=== PATIENT | male | born 1995 | race Two or more races ===

== ENCOUNTER 2018-05-04 12:38 | Emergency (ER) | payer OTHER ==
[2018-05-04 12:48] VITALS: BMI 33.5
[2018-05-04 14:18] LABS: BASO % 0.9 % (0-2.0); EOS % 0.7 % (0-4.5); HEMATOCRIT 49.2 % (35.4-49); HEMOGLOBIN 16.3 GM/dL (11.7-16.9); LYMPH % 22.4 % (8-40); MCH 30.3 pg (25.7-33.7); MCHC 33.2 g/dl (32.0-35.9); MEAN CELL VOLUME 91.5 fl (80-96); MEAN PLT VOLUME 9.4 fl (7.5-11.1); PLATELET COUNT 167 K/MM3 (134-434); RBC 5.37 M/mm3 (4.00-5.60); RDW 14.4 % (11.9-15.9); WHITE BLOOD COUNT 7.6 K/mm3 (4.0-10.0)
[2018-05-04 14:55] LABS: ALK PHOS 70 U/L (45-117); ANION GAP 7 MMOL/L (8-16); BILIRUBIN,TOTAL 0.4 mg/dL (0.2-1); BLOOD UREA NITROGEN 13 mg/dL (7-18); CALCIUM 8.9 mg/dL (8.5-10.1); CHLORIDE 104 mmol/L (98-107); CO2 28 mmol/L (21-32); CREATININE 1.1 mg/dL (0.55-1.3); GLUCOSE,RANDOM 119 mg/dL (74-106); POTASSIUM 4.2 mmol/L (3.5-5.1); SGOT/AST 19 U/L (15-37); SGPT/ALT 65 U/L (13-61); SODIUM 140 mmol/L (136-145); TOT PROT 7.5 g/dl (6.4-8.2)
--- NOTE | 2018-05-04 15:38 | PDOC ---
History of Present Illness <Celine Davis - Last Filed: 05/04/18 17:49> - General History Source: Patient, Family (brother) Exam Limitations: Clinical Condition - History of Present Illness Initial Comments: 05/04/18 15:33 Patient with no sig Past medical history present with complain of palpitation upon with this morning upon wake. Patient denies any chest pain, nausea or vomiting. Patient denies sweats, dizziness, headache, lightheadedness or any other symptoms. Patient reported family history of heart attack but no cardiac history himself. Denies any other symptoms Timing/Duration: other (8hrs) <Darren Stacy - Last Filed: 05/05/18 11:56> - General Chief Complaint: Chest Pain Stated Complaint: CHEST PAIN/PALPITATIONS Time Seen by Provider: 05/04/18 13:35 Past History <Celine Davisjuan - Last Filed: 05/04/18 17:49> - Past Medical History COPD: No - Suicide/Smoking/Psychosocial Hx Smoking History: Never smoked Information on smoking cessation initiated: No Hx Alcohol Use: No Drug/Substance Use Hx: No Substance Use Type: None <TawannaDarren hutchins Constantino - Last Filed: 05/05/18 11:56> - Past Medical History Allergies/Adverse Reactions: Allergies Allergy/AdvReac Type Severity Reaction Status Date / Time No Known Allergies Allergy Verified 05/04/18 12:48 Home Medications: Ambulatory Orders NK [No Known Home Medication] 05/04/18 Review of Systems - Review of Systems Able to Perform ROS?: Yes Is the patient limited Malagasy proficient: No Constitutional: No: Weakness HEENTM: No: Blurred Vision, Recent change in vision, Double Vision Respiratory: No: Cough, Orthopnea, Shortness of Breath, SOB with Exertion, SOB at Rest, Stridor, Wheezing, Productive cough, Hemoptysis, Other Cardiac (ROS): Yes: Palpitations. No: Chest Pain, Edema, Irregular Heart Rate, Lightheadedness, Syncope, Chest Tightness, Other ABD/GI: No: Nausea, Vomiting All Other Systems: Reviewed and Negative <Darren Stacy Constantino - Last Filed: 05/05/18 11:56> *Physical Exam - Vital Signs Last Vital Signs Temp Pulse Resp BP Pulse Ox 98.8 F 80 18 165/72 100 05/04/18 12:45 05/04/18 12:45 05/04/18 12:45 05/04/18 12:45 05/04/18 12:45 <DavisCeline Lopes - Last Filed: 05/04/18 17:49> - Vital Signs Last Vital Signs Temp Pulse Resp BP Pulse Ox 98.8 F 80 18 165/72 100 05/04/18 12:45 05/04/18 12:45 05/04/18 12:45 05/04/18 12:45 05/04/18 12:45 - Physical Exam Comments: 05/04/18 15:35 GENERAL: Well developed, well nourished. Awake and alert. No acute distress. HEENT: Normocephalic, atraumatic. PERRLA, EOMI. No conjunctival pallor. Sclera are non- icteric. Moist mucous membranes. Oropharynx is clear. NECK: Supple. Full ROM. No JVD. Carotid pulses 2+ and symmetric, without bruits. No thyromegaly. No lymphadenopathy. CARDIOVASCULAR: Regular rate and rhythm. No murmurs, rubs, or gallops. Distal pulses are 2+ and symmetric. PULMONARY: No evidence of respiratory distress. Lungs clear to auscultation bilaterally. No wheezing, rales or rhonchi. ABDOMINAL: Soft. Non-tender. Non-distended. No rebound or guarding. No organomegaly. Normoactive bowel sounds. MUSCULOSKELETAL Normal range of motion at all joints. No bony deformities or tenderness. No CVA tenderness. EXTREMITIES: No cyanosis. No clubbing. No edema. No calf tenderness. SKIN: Warm and dry. Normal capillary refill. No rashes. No jaundice. NEUROLOGICAL: Alert, awake, appropriate. PSYCHIATRIC: Cooperative. Good eye contact. Appropriate mood and affect. General Appearance: Yes: Nourished, Appropriately Dressed. No: Apparent Distress <Darren Stacy - Last Filed: 05/05/18 11:56> ED Treatment Course - LABORATORY CBC & Chemistry Diagram: 05/04/18 14:05 05/04/18 14:05 - ADDITIONAL ORDERS Additional order review: Laboratory Results 05/04/18 05/04/18 14:05 14:05 Sodium 140 Potassium 4.2 Chloride 104 Carbon Dioxide 28 Anion Gap 7 L BUN 13 Creatinine 1.1 Creat Clearance w eGFR > 60 Random Glucose 119 H Lactic Acid 1.7 Calcium 8.9 Total Bilirubin 0.4 AST 19 ALT 65 H Alkaline Phosphatase 70 Creatine Kinase 278 Creatine Kinase Index 0.4 CK-MB (CK-2) 1.3 Troponin I < 0.02 Total Protein 7.5 Albumin 4.0 TSH 2.33 Free T4 0.94 05/04/18 14:05 RBC 5.37 MCV 91.5 MCHC 33.2 RDW 14.4 MPV 9.4 Neutrophils % 66.0 Lymphocytes % 22.4 Monocytes % 10.0 Eosinophils % 0.7 Basophils % 0.9 <Celine Davis - Last Filed: 05/04/18 17:49> - LABORATORY CBC & Chemistry Diagram: 05/04/18 14:05 05/04/18 14:05 - ADDITIONAL ORDERS Additional order review: Laboratory Results 05/04/18 05/04/18 14:05 14:05 Sodium 140 Potassium 4.2 Chloride 104 Carbon Dioxide 28 Anion Gap 7 L BUN 13 Creatinine 1.1 Creat Clearance w eGFR > 60 Random Glucose 119 H Lactic Acid 1.7 Calcium 8.9 Total Bilirubin 0.4 AST 19 ALT 65 H Alkaline Phosphatase 70 Creatine Kinase 278 Creatine Kinase Index 0.4 CK-MB (CK-2) 1.3 Troponin I < 0.02 Total Protein 7.5 Albumin 4.0 TSH 2.33 Free T4 0.94 05/04/18 14:05 RBC 5.37 MCV 91.5 MCHC 33.2 RDW 14.4 MPV 9.4 Neutrophils % 66.0 Lymphocytes % 22.4 Monocytes % 10.0 Eosinophils % 0.7 Basophils % 0.9 - RADIOLOGY Radiology Studies Ordered: Category Date Time Status CHEST PA & LAT [RAD] Stat Radiology 05/04/18 13:44 Completed <Darren Stacy - Last Filed: 05/05/18 11:56> Medical Decision Making - Medical Decision Making The patient was seen and evaluated in conjunction with midlevel provider under my direct supervision, ancillary studies were reviewed. I agree with the plan as outlined by ROISE Stacy vitals wnl, reassuring trops neg x2. EKG unchanged, no prior. TWI in III, unchanged, normal intervals, sinus rhythm, normal QRS. no ST segment derangements. labs and lytes normal discharge. 05/04/18 17:49 05/04/18 17:52 <Celine Davis - Last Filed: 05/04/18 17:49> - Medical Decision Making 05/04/18 15:38 Patient with no past medical history presenting with complain of palpitation upon wake this morning with no other symptoms. Clinical exam unremarkable. EKG shows normal sinus rhythm. CBC and chemistry unremarkable. Cardiac profile unremarkable. Will repeat cardiac profile and EKG after 3 hours. 05/04/18 19:55 second cardiac profile labs normal . patient stable for discharge with cardiology follow-up <Darren Stacy - Last Filed: 05/05/18 11:56> *DC/Admit/Observation/Transfer <Celine Davis Moses - Last Filed: 05/04/18 17:49> - Discharge Dispostion Decision to Admit order: No <Darren Stacy - Last Filed: 05/05/18 11:56> Diagnosis at time of Disposition: Palpitation Chest pain Qualifiers: Chest pain type: unspecified Qualified Code(s): R07.9 - Chest pain, unspecified - Discharge Dispostion Disposition: HOME Condition at time of disposition: Stable - Referrals Referrals: Davion Sánchez MD [Staff Physician] - - Patient Instructions Printed Discharge Instructions: DI for Atypical Chest Pain Additional Instructions: your EKG and labs were normal. No findings was seen on chest x-ray or labs. No evidence of heart problem found. Follow-up with preferred outboard motorboat rigger if symptoms persist
[2018-05-04 19:38] VITALS: BP 142/85; PULSE 75; TEMP 98.5
--- NOTE | 2018-05-05 11:12 | EKG ---
Test Reason : Blood Pressure : / mmHG Vent. Rate : 085 BPM Atrial Rate : 085 BPM P-R Int : 164 ms QRS Dur : 088 ms QT Int : 360 ms P-R-T Axes : 047 042 017 degrees QTc Int : 428 ms NORMAL SINUS RHYTHM NORMAL ECG NO PREVIOUS ECGS AVAILABLE Confirmed by KYLAH DIA MD ([id number]) on 05/05/2018 11:11:58 AM Referred By: Confirmed By:KYLAH DIA MD
--- NOTE | 2018-05-06 13:53 | EKG ---
Test Reason : Blood Pressure : / mmHG Vent. Rate : 076 BPM Atrial Rate : 076 BPM P-R Int : 164 ms QRS Dur : 090 ms QT Int : 376 ms P-R-T Axes : 041 055 010 degrees QTc Int : 423 ms NORMAL SINUS RHYTHM WHEN COMPARED WITH ECG OF 04-MAY-2018 12:44, NO SIGNIFICANT CHANGE WAS FOUND Confirmed by RODO OWENS MD ([id number]) on 05/06/2018 1:53:37 PM Referred By: Confirmed By:RODO OWENS MD
== END 2018-05-04 19:55 | disposition home or self-care (01) ==
LOC: JER 12:38
DX: R07.9 Chest pain, unspecified (principal); R00.2 Palpitations
CPT/HCPCS: 36415; 71046-TC-FY; 80053; 82550; 82553; 83605; 84439; 84443; 84481; 84484; 85025; 93005; 93010; 99284-25

== ENCOUNTER 2019-03-11 17:58 | Emergency (ER) | payer OTHER ==
[2019-03-11 18:05] VITALS: BP 122/71; PULSE 95; TEMP 98.6; BMI 35.2
[2019-03-11] MEDS ORDERED: KETOROLAC TROMETHAMINE 60 MG/2 ML VIAL IM ONE (18:13)
--- NOTE | 2019-03-11 18:20 | PDOC ---
History of Present Illness - General Chief Complaint: Pain Stated Complaint: PAIN TO RT ARM Time Seen by Provider: 03/11/19 18:07 - History of Present Illness Initial Comments: 03/11/19 18:15 CHIEF COMPLAINT: R elbow pain HISTORY OF PRESENT ILLNESS: 23 yo M with no PMH presents to [facility] with pain to R elbow after pitching at a baseball game last night. Patient states he feels pain and weakness when he bends his elbow. Denies any trauma to arm. No recent travel or sick contacts. PAST MEDICAL HISTORY: Denies past medical history FAMILY HISTORY: Denies SOCIAL HISTORY: Denies tobacco, alcohol, illicit drug use. SURGICAL HISTORY: Denies ALLERGIES: No known drug allergies REVIEW OF SYSTEMS General/Constitutional: Denies fever or chills. Denies weakness, weight change. HEENT: Denies change in vision. Denies ear pain or discharge. Denies sore throat. Cardiovascular: Denies chest pain or shortness of breath. Respiratory: Denies cough, wheezing, or hemoptysis. Gastrointestinal: Denies nausea, vomiting, diarrhea or constipation. Denies rectal bleeding. Genitourinary: Denies dysuria, frequency, or change in urination. Musculoskeletal: Pain to R elbow. Denies neck or back pain. Skin and breasts: Denies rash or easy bruising. Neurologic: Denies headache, vertigo, loss of consciousness, or loss of sensation. Psychiatric: Denies depression or anxiety. Endocrine: Denies increased thirst. Denies abnormal weight change. Hematologic/Lymphatic: Denies anemia, easy bleeding, or history of blood clots. Allergic/Immunologic: Denies hives or skin allergy. Denies latex allergy. PHYSICAL EXAM General Appearance: Well-appearing, appropriately dressed. No apparent distress , no intoxication. HEENT: EOMI, PERRLA, normal ENT inspection, normal voice, TMs normal, pharynx normal. No conjunctival pallor. No photophobia, scleral icterus. Neck: Supple. Trachea midline. No tenderness, rigidity, carotid bruit, stridor , lymphadenopathy, or thyromegaly. Respiratory/Chest: Lungs CTAB. No shortness of breath, chest tenderness, respiratory distress, accessory muscle use. No crackles, rales, rhonchi, stridor , wheezing, dullness Cardiovascular: RRR. S1, S2. No JVD, murmur, bradycardia, tachycardia. Vascular Pulses: Dorsalis-Pedis (R): 2+, Dorsalis-Pedis (L): 2+ Gastrointestinal/Abdominal: Normal bowel sounds. Abdomen soft, non-distended. No tenderness or rebound tenderness. No organomegaly, pulsatile mass, guarding , hernia, hepatomegaly, splenomegaly. Lymphatic: No adenopathy, tenderness. Musculoskeletal/Extremities: Pain elicited with flexion of R elbow, tenderness to medical antecubital fossa on palpation. Normal inspection. FROM of all extremities, normal capillary refill. Pelvis Stable. No CVA tenderness. No tenderness to extremities, pedal edema, swelling, erythema or deformity. Integumentary: Appropriate color, dry, warm. No cyanosis, erythema, jaundice or rash Neurologic: mutton puncher II-XII intact. Fully oriented, alert. Appropriate mood/affect. Motor strength 5/5. No appreciable EOM palsy, facial droop or sensory deficit. Past History - Past Medical History Allergies/Adverse Reactions: Allergies Allergy/AdvReac Type Severity Reaction Status Date / Time No Known Allergies Allergy Verified 03/11/19 18:05 Home Medications: Ambulatory Orders NK [No Known Home Medication] 03/11/19 COPD: No - Suicide/Smoking/Psychosocial Hx Smoking History: Never smoked Hx Alcohol Use: No Drug/Substance Use Hx: No Substance Use Type: None *Physical Exam - Vital Signs Last Vital Signs Temp Pulse Resp BP Pulse Ox 98.6 F 95 H 18 122/71 99 03/11/19 18:03 03/11/19 18:03 03/11/19 18:03 03/11/19 18:03 03/11/19 18:03 Medical Decision Making - Medical Decision Making 03/11/19 18:19 23 yo M with no PMH presents to [facility] with pain to R elbow after pitching at a baseball game last night. Clinical presentation consistent with epicondylitis. -Toradol IM Advised patient to take medication as prescribed and follow up with ortho. Advised patient of signs and symptoms for return to ED. Patient verbalized understanding and agrees to plan. *DC/Admit/Observation/Transfer Diagnosis at time of Disposition: Epicondylitis - Discharge Dispostion Disposition: HOME Condition at time of disposition: Stable Decision to Admit order: No - Referrals Referrals: Percy Alvarez MD [Staff Physician] - Gerson Gutierrez DO [Staff Physician] - - Patient Instructions Printed Discharge Instructions: Medial Epicondylitis Print Language: KOREAN - Post Discharge Activity
[2019-03-11] MEDS ORDERED: KETOROLAC TROMETHAMINE 60 MG/2 ML VIAL ONE (18:23)
== END 2019-03-11 18:41 | disposition home or self-care (01) ==
LOC: JERFT 17:58
PROC: 3E0233Z Introduction of Anti-inflammatory into Muscle, Percutaneous Approach (ICD-10-PCS; principal; 2019-03-11)
DX: M77.01 Medial epicondylitis, right elbow (principal); X50.3XXA Overexertion from repetitive movements, initial encounter; Y93.64 Activity, baseball; Y92.320 Baseball field as the place of occurrence of the external cause; Y99.8 Other external cause status
CPT/HCPCS: 96372; 99282-25

== ENCOUNTER 2023-06-07 16:18 | Emergency (ER) | payer SELFPAY ==
[2023-06-07 16:47] VITALS: BMI 29.1
[2023-06-07 19:07] LABS: EOS % 0.5 % (0-4.5); HEMATOCRIT 48.2 % (35.4-49); HEMOGLOBIN 16.6 GM/dL (11.7-16.9); LYMPH % 19.7 % (8-40); MCH 29.7 pg (25.7-33.7); MCHC 34.5 g/dl (32.0-35.9); MEAN PLT VOLUME 8.8 fl (7.5-11.1); MONO % 6.7 % (3.8-10.2); NEUT % 72.1 % (42.8-82.8); PLATELET COUNT 233 10^3/uL (134-434); RDW 13.7 % (11.9-15.9); WHITE BLOOD COUNT 8.6 K/mm3 (4.0-10.0)
[2023-06-07 19:24] LABS: ACTIVATED PTT 30.6 SECONDS (25.2-36.5); INR 1.18 (0.83-1.09); PROTHROMBIN TIME (PATIENT) 13.7 SEC (9.7-13.0)
[2023-06-07 19:26] LABS: CALCIUM 9.1 mg/dL (8.5-10.1)
[2023-06-07 19:27] LABS: ALBUMIN 4.7 g/dl (3.4-5.0); BLOOD UREA NITROGEN 9.8 mg/dL (7-18); MAGNESIUM 2.2 mg/dL (1.8-2.4)
[2023-06-07 19:31] LABS: BILIRUBIN,TOTAL 0.7 mg/dL (0.2-1); TOT PROT 8.4 g/dl (6.4-8.2)
[2023-06-07 20:39] VITALS: TEMP 98.9
[2023-06-07 23:23] VITALS: BP 118/75; PULSE 85; RESP 19
== END 2023-06-07 23:22 | disposition home or self-care (01) ==
LOC: JER 16:18
DX: I10 Essential (primary) hypertension (principal); R00.2 Palpitations; R07.9 Chest pain, unspecified; Z20.822 Contact with and (suspected) exposure to COVID-19
CPT/HCPCS: 0241U-QW; 36415; 71046-TC-FY; 80053; 82962; 83735; 84439; 84443; 84484; 85025; 85379; 85610; 85730; 93005; 93010; 99285-25

== ENCOUNTER 2024-06-17 10:20 | Emergency (ER) | payer OTHER ==
[2024-06-17 10:50] VITALS: PULSE 94; RESP 18; BMI 23.5
[2024-06-17] MEDS ORDERED: FAMOTIDINE 10 MG TABLET ONE (11:24)
[2024-06-17] MEDS ORDERED: MAG HYDROX/AL HYDROX/SIMETH 30 ML UNIT-DOSE CUP ONE (11:25)
[2024-06-17] MEDS: MAG HYDROX/AL HYDROX/SIMETH 30 ML UNIT-DOSE CUP PO ONE (11:49)
[2024-06-17] MEDS: FAMOTIDINE 10 MG TABLET PO ONE (11:49)
[2024-06-17 12:30] LABS: EOS % 1.3 % (0-4.5); HEMATOCRIT 49.4 % (35.4-49); HEMOGLOBIN 16.9 GM/dL (11.7-16.9); LYMPH % 13.1 % (8-40); MCH 30.9 pg (25.7-33.7); MCHC 34.1 g/dl (32.0-35.9); MEAN CELL VOLUME 90.5 fl (80-96); MEAN PLT VOLUME 9.6 fl (7.5-11.1); MONO % 16.3 % (3.8-10.2); NEUT % 68.3 % (42.8-82.8); PLATELET COUNT 170 10^3/uL (134-434); RBC 5.46 M/mm3 (4.00-5.60); WHITE BLOOD COUNT 6.3 K/mm3 (4.0-10.0)
[2024-06-17 12:54] LABS: POTASSIUM 3.9 mmol/L (3.5-5.1)
[2024-06-17 12:56] LABS: ALBUMIN 4.5 g/dl (3.4-5.0); BLOOD UREA NITROGEN 6.1 mg/dL (7-18); CALCIUM 9.2 mg/dL (8.5-10.1)
[2024-06-17 13:02] LABS: BILIRUBIN,TOTAL 0.6 mg/dL (0.2-1); TOT PROT 7.7 g/dl (6.4-8.2)
[2024-06-17 13:57] LABS: HIV INTERPRETATION NEGATIVE (NEGATIVE)
[2024-06-17 14:13] VITALS: BP 121/78; TEMP 98.9
== END 2024-06-17 16:10 | disposition home or self-care (01) ==
LOC: JER 10:20
DX: R00.2 Palpitations (principal); R10.12 Left upper quadrant pain; R10.32 Left lower quadrant pain
CPT/HCPCS: 36415; 80053; 83690; 83735; 84484; 85025; 86803; 87389; 93005; 93010; 99284-25